=== PATIENT | male | born 1940 | race Caucasian/White ===

== ENCOUNTER 2019-02-01 05:56 | Inpatient (IN) | payer OTHER ==
[~2019-02-01] VITALS: Ht 170.2 cm; Wt 101.6 kg
[2019-02-01 06:18] VITALS: BP 137/73
[2019-02-01 07:30] VITALS: BP 130/81
[2019-02-01] MEDS ORDERED: TOPROL XL50 MG PO (09:06)
[2019-02-01] MEDS ORDERED: SIMVASTATIN10 M1 PO (09:07)
[2019-02-01] MEDS ORDERED: ALFUZOSIN HYDRO10 M1 PO (09:07)
[2019-02-01] MEDS ORDERED: LOSARTAN POTASS1 TA6 PO (09:08)
[2019-02-01] MEDS ORDERED: ALLOPURINOL100 MG PO (09:08)
--- NOTE | 2019-02-01 12:10 | NUR ---
RECEIVED PATIENT FROM POST-OP CARE W/ NURSES. PATIENT A/A/OX4; CLEAR SPEECH. V/S = [id number]/67. O2 SAT 97% ON 2L VIA N/C. POST-OP OF TOTAL RT KNEE REPLACEMENT. SX DRSG C/D/I W/ [facility] ICE MACHINE. RLE ELEVATED W/ PILLOWS. ENEDELIA PEDAL PULSES STRONG. ABLE TO MOVE RT FOOT. STATED PAIN ON 08/29 TO SURGICAL SITE. IVHL'D TO RFA, 20G. AT BED SIDE.
[2019-02-01 12:19] VITALS: BP 128/67
--- NOTE | 2019-02-01 15:27 | NUR ---
WALKED WITH PHYSICAL THERAPIST. VOID VIA BRP. BLOUNT D/C'D IN OR.
--- NOTE | 2019-02-01 15:30 | NUR ---
PATIENT OUT OF BED AND WALKED WITH PHYSICAL THERAPIST. PATIENT STATED NO URINE THIS TIME. LBOUNT D/C'D IN OR. WITH 100CC UOP.
--- NOTE | 2019-02-01 17:30 | NUR ---
PNEUMOCOCCAL VACCINE GIVEN TO L UPPER ARM.
[2019-02-01 17:59] VITALS: BP 125/69
--- NOTE | 2019-02-01 18:45 | NUR ---
IVF OF NS 80CC/HR. TOLERATED REGULAR DIET LUNCH AND DINNER. PAIN MANAGEMENT GIVEN. PATIENT VOID 10CC OG URINE VIA URINAL. WARM PAD TO PELVIC AREA GIVEN. CONTINUE MONITOR.
--- NOTE | 2019-02-01 19:00 | NUR ---
BLADDER SCAN GIVEN. 239CC OF URINE VOLUME NOW. REPORT GIVEN TO KIRBY RN, NOC NURSE.
--- NOTE | 2019-02-01 20:00 | NUR ---
RECEIVED PATIENT IN BED AWAKE, ALERT AND ORIENTED WITH NO C/O POST OPERATIVE PAIN AT THIS TIME. DRESSING TO RIGHT KNEE CDI WITH ICE POLAR CARE. WIFW AT BEDSIDE. IV TO RFA INTACT AND INFUSING WELL. WILL CONTINUE TO MONITOR. CALL LIGHT WITHIN REACH.
[2019-02-01 21:27] VITALS: BP 115/56
--- NOTE | 2019-02-01 23:23 | NUR ---
APPEAR TO BE SLEEPING AT THIS TIME, NO INDICATION OF PAIN AND DISCOMFORT NOTED. WILL CONTINUE TO MONITOR.
--- NOTE | 2019-02-02 02:55 | NUR ---
PATIENT SLEEPING WITH NO SIGN OF PAIN AND DISCOMFORT. POLAR MACHINE ICE REPLACED.
--- NOTE | 2019-02-02 05:08 | NUR ---
CHECKED AT INTERVALS FOR NEEDS AND COMFORT. DENIES POST OPERATIVE PAIN THE ENTIRE SHIFT. PATIENT ON TORADOL IV Q 8HRS. ALL NEEDS ATTENDED.
[2019-02-02 05:34] VITALS: BP 125/62
[2019-02-02 06:11] LABS: PLATELET COUNT 229 x10^3mcL (130-400)
[2019-02-02 06:26] LABS: CALCIUM 8.6 mg/dL (8.5-10.1); CHLORIDE SERUM 98 mmol/L (98-107); CREATININE SERUM 1.9 mg/dL (0.7-1.3); GLUCOSE SERUM 119 mg/dL (74-106); POTASSIUM SERUM 4.5 mmol/L (3.5-5.1); SODIUM SERUM 133 mmol/L (136-145)
[2019-02-02 06:41] LABS: BASOPHIL % 0 % (0-2)
--- NOTE | 2019-02-02 07:25 | NUR ---
RECEIVED HAND OFF REPORT FROM NURSE. PATIENT IS SITTING UP IN BED AT THIS TIME AWAKE AND ALERT, S/P RIGHT KNEE REPLACEMENT. PATIENT IS NOT COMPLAINING OF PAIN AT THIS TIME. DRESSING TO RIGHT KNEE CDI, ICE MACHINE PROVIDING CONTINOUS COOLING MEASURES TO RIGHT KNEE IN PLACE. CALL LIGHT WITHIN REACH WILL CONTINUE TO MONITOR
--- NOTE | 2019-02-02 08:00 | NUR ---
DR SANDERS ROUNDED ON PATIENT, PATIENT STATES SAID HE WILL BE DISCHARGED TODAY. AWAITING [facility]STRUCT[facility]ANCHESCA
[2019-02-02] MEDS ORDERED: ECO81 PO (08:16)
[2019-02-02] MEDS ORDERED: ACETAMINOPHEN-H1 TA1 PO (08:17)
[2019-02-02] MEDS ORDERED: COL100 PO (08:17)
[2019-02-02 08:53] VITALS: BP 126/69
--- NOTE | 2019-02-02 09:25 | NUR ---
PATIENT HAS NO COMPAINTS AT THIS TIME. CALL LIGHT WITHIN REACH, ATBEDSIDE
--- NOTE | 2019-02-02 10:23 | NUR ---
RECIEVED HAND OFF REPORT FROM NIGHT NURSE. PATIENT IS AWAK AND SITTING UP AT THIS TIME WITH AT BEDSIDE. PATIENT IS S/P RIGHT KNEE REPLACEMENT UNDER DR SANDERS. PATIENT HAS DRESSING TO RIGHT KNEE WITH ICE MACHINE PROVIDING CONTINUOUS COOLING TO SURGICAL SITE. PATIENT NOT COMPAINING OF PAIN A THIS TIME. WILL CONTINUE TO MONITOR
[2019-02-02 11:06] VITALS: BP 126/69
--- NOTE | 2019-02-02 11:21 | NUR ---
ADMINSTERED MEDICATION PER MAR. PATIENT REFUSED TYLENOL STATING HE WILL TAKE A DOSE WHEN HE GETS HOME. PROCESSING DISHCARGE AT THIS TIME
--- NOTE | 2019-02-02 11:45 | NUR ---
PATIENT PROVIDED TEACHING FOR DISHCARGE. REVIEWED STAY WITH PATIENT AND REINFORCED INSTRUCTIONS DR [facility]. PATIENT STATED HE ALREADY HAVE PRESCRIPTIONS FILLED AND WAITING TO BE PICKED UP. REMOVED IV FROM RIGHT WRIST, CATH INTACT. PATIENT ESCORTED OFF UNIT BY ELAINE FALCON WITH ALL BELONGINGS IN HAND.
== END 2019-02-02 11:50 | disposition home or self-care (01) | DRG 470 ==
LOC: MU 05:56 → DU 07:30 → MU 07:30
PROVIDERS: ADMIT Orthopaedic Surgery
PROC: 0SRC0J9 Replacement of Right Knee Joint with Synthetic Substitute, Cemented, Open Approach (ICD-10-PCS; principal; 2019-02-01 07:30)
DX: M17.11 Unilateral primary osteoarthritis, right knee (principal); I10 Essential (primary) hypertension; E66.9 Obesity, unspecified; Z68.36 Body mass index [BMI] 36.0-36.9, adult; Z96.652 Presence of left artificial knee joint
CPT/HCPCS: 90732; 97116-GP; 97530-GP; C1713; C1776; G0378; J0690; J1100; J1170; J1885; J2270; J2405; J2704; J3010; J3490; J7030; J7120; Q0092